=== PATIENT | male | born 1980 | race Caucasian/White ===

== ENCOUNTER 2020-09-28 14:22 | Emergency (ER) | payer OTHER, SELFPAY ==
[2020-09-28 14:40] VITALS: PULSE 119; RESP 20; TEMP 38.2; O2SAT 95; BMI 49.1
--- NOTE | 2020-09-28 15:09 | W.ED.EXTPRO ---
HPI - Extremity Problem General: Chief complaint: Extremity Problem,Nontraumatic Stated complaint: R LEG PAIN Time Seen by Provider: 09/28/20 14:36 History of Present Illness: HPI Narrative: Patient is a 39-year-old male comes to the ED with right leg pain. Patient says approximately 2 weeks ago started developing some right leg pain and soreness from road rash on the front part of calf. Patient says he has had this before and it cellulitis. He usually gets a prescription for an antibiotic and it improves and goes away. Patient says he had a few leftover antibiotics that he has been taking for couple days now and says that it has improved his right leg but he is out of antibiotics. Associated symptoms: Deny chest pain, fever(s) or rash Review of Systems Const: Denies: fever(s), chills or fatigue Eyes: Denies: change in vision or eye discomfort ENMT: Denies: throat pain, odynophagia, nasal discharge or nasal congestion Card: Denies: chest pain, palpitations, edema, swelling of feet/ankles, dyspnea on exertion or orthopnea Resp: Denies: dyspnea, productive cough or non-productive cough GI: Denies: abdominal pain, nausea, vomiting, diarrhea, constipation or hematochezia : Denies: flank pain, difficulty urinating, dysuria or hematuria Musc: Denies: neck pain, back pain or extremity swelling Skin/Breast: Reports: new lesions (On anterior aspect of right lower leg?tenderness erythema and warmth.); Denies: rash Neuro: Denies: headache(s), numbness in extremities or weakness in extremities Physical Exam Const: COMMON NORMALS: no acute distress, patient oriented x3 and alert GENERAL APPEARANCE: cooperative and comfortable NUTRITIONAL APPEARANCE: obese HENMT: COMMON NORMALS: normocephalic HEAD & SCALP: normocephalic MOUTH: Normal oral and palatal mucosa present THROAT: posterior oropharynx normal and uvula midline Neck/C-Spine: COMMON NORMALS: supple GENERAL: Yes normal visual inspection Resp: COMMON NORMALS: normal respiratory effort, No retractions, No use of accessory muscles and clear to auscultation bilaterally AUSCULTATION: clear to auscultation bilaterally Cardio: COMMON NORMALS: regular rate, regular rhythm, S1 normal heart sound present, S2 normal heart sound present, No gallops present (Cardio), No clicks present (Cardio), No murmurs present (Cardio) and Peripheral pulses 2+ throughout RATE: regular rate RHYTHM: regular rhythm HEART SOUNDS: S1 normal heart sound present and S2 normal heart sound present PERIPHERAL PULSES: Peripheral pulses 2+ throughout GI: COMMON NORMALS: Normal to inspection, nondistended, normoactive bowel sounds present, Soft to palpation, non-tender and no masses PALPATION: Yes Soft to palpation : COMMON NORMALS: Yes no CVA tenderness BLADDER/KIDNEY EXAM: Yes no CVA tenderness Back/Pelvis: COMMON NORMALS: no CVA tenderness Extremity: NARRATIVE EXTREMITY EXAM: Anterior aspect of right lower leg has tenderness, erythema and warmth. Findings suggestive of cellulitis. GENERAL: Yes normal exam except as noted Neuro: COMMON NORMALS: patient oriented x3 and moves all extremities SENSORIUM/ORIENTATION: Yes alert Skin: NARRATIVE SKIN EXAM: Anterior aspect of right lower leg has tenderness, erythema and warmth. Findings suggestive of cellulitis. GENERAL SKIN EXAM: dry skin Course Vital Signs: Vital signs: Vital Signs Temperature 100.7 F H 09/28/20 14:40 Pulse Rate 119 H 09/28/20 14:40 Respiratory Rate 20 H 09/28/20 14:40 Pulse Oximetry 95 09/28/20 14:40 MDM - Extremity (Nontraumatic) MDM Narrative: Medical decision making narrative: Patient is a 39-year-old male comes to the ED with pain to right lower leg. Patient's anterior aspect of right lower leg had tenderness erythema and warmth. Findings suggestive of cellulitis. Patient was given a dose of IM Rocephin here in the ED. He was discharged home with a prescription for Bactrim. I placed order with case management for patient to be referred to a PCP. Return to ED precautions given. I told patient that case management will be contacting them in the next couple days set up appointment with PCP. Take [id number] Tylenol or ibuprofen for pain or fevers. Patient understood agree with plan. Discharge Plan Discharge Patient Disposition: Home Clinical Impression: Cellulitis Qualifiers: Site of cellulitis: extremity Site of cellulitis of extremity: lower extremity Laterality: right Qualified Code(s): L03.115 - Cellulitis of right lower limb Condition: Stable Prescriptions: New Bactrim DS 800-160 mg tablet 1 tab PO BID 10 Days Qty: 20 RF: 0 Discharge Orders: Discharge ED (Routine); Ordered 09/28/20 Ordered By: Suresh Hylton Discharge Diet: Regular Discharge Activity: Limit activity as instructed Patient Instructions: Cellulitis (ED) Activity Restrictions/Additional Instructions: Follow-up with medical provider as directed. Case management will contact you next several days set up an appointment with a PCP. Take medications as prescribed. Return to the ER or your medical provider if condition worsens. Please read and understand discharge instructions. If any questions, please ask. Stand Alone Forms: Work/School Release Coding Level of Care Code ED [employer] for [employer] Fwd Exam Comprehensive
[2020-09-28] MEDS: cefTRIAXone 1,000 MG in lidocaine 1% 2.1 ML 1 MG IM (15:29)
--- NOTE | 2020-10-01 11:00 | DCPLANNER ---
escrow manager had message to speak with patient about getting a primary care physician. escrow manager called phone number [phone], unable to speak with patient at this time, a voicemail was left for patient to return caseworker intake phone call.
== END 2020-09-28 15:32 | disposition home or self-care (01) ==
LOC: ER 15:27
PROVIDERS: Emergency Provider Physician Assistant
DX: L03.115 Cellulitis of right lower limb (principal)
CPT/HCPCS: 96372; 99283; J0696

== ENCOUNTER 2023-02-14 09:33 | Outpatient (CLI) | payer BC, MEDICAID, SELFPAY ==
[2023-02-17 12:50] LABS: Quantiferon Mitogen 9.96 IU/mL; Quantiferon Nil 0.07 IU/mL; Quantiferon Plus TB2 <0.00 IU/mL; Quantiferon TB Gold NEGATIVE (NEGATIVE)
== END 2023-02-14 09:34 | disposition home or self-care (01) ==
LOC: LAB 09:44
PROVIDERS: PCP Family Medicine; Visit Provider Family Medicine
DX: Z11.1 Encounter for screening for respiratory tuberculosis (principal)
CPT/HCPCS: 36415; 86480

== ENCOUNTER 2023-03-08 07:39 | Day surgery (SDC) | payer BC, MEDICAID, SELFPAY ==
[2023-03-07 13:07] VITALS: BMI 51.0
[2023-03-08] VITALS (11 sets, daily range): BP systolic 146–163; BP diastolic 82–101; PULSE 56–66; RESP 16–18; TEMP 36.1–36.8; O2SAT 92–100
--- NOTE | 2023-03-08 08:04 | W.PM.OPSUD ---
Surgery/Procedure H&P Update DATE OF PROCEDURE: March 08, 2023 DATE H&P PERFORMED: 02/21/23 H&P UPDATE INFORMATION: I have reviewed H&P completed within last 30 days, I have examined patient prior to procedure and No changes to prior documentation PLANNED PROCEDURE: Operation Date: 03/08/23 09:05 Proposed Procedures p 84291 lap umbilical hernia repair with mesh K42.9(Not Applicable) - Stanley Mcmillan, DO
--- NOTE | 2023-03-08 08:35 | ANES.PREANE2 ---
Pre-Anesthetic Assessment Height/Weight: Height 1.7 m Weight 147.871 kg Temp Pulse Resp BP Pulse Ox O2 Del Method 97.4 F L 60 16 148/101 97 Room Air 03/08/23 08:05 03/08/23 08:05 03/08/23 08:05 03/08/23 08:05 03/08/23 08:05 03/08/23 08:17 Operation Date: 03/08/23 09:05 Proposed Procedures p 42909 lap umbilical hernia repair with mesh K42.9(Not Applicable) - Stanley Mcmillan DO Familial anesthetic complications: none Was Beta Gabriela taken within 24 hours: N/A Was Clonidine taken within 24 hours: N/A Last intake: Intake Last Liquid Date 03/07/23 Last Liquid Time 23:05 Last Solid Date 03/07/23 Last Solid Time 22:00 Social No alcohol and No tobacco Exam alert, oriented x 3, clear to auscultation bilaterally and regular rate & rhythm Airway Submandibular: within normal limits Cervical ROM: within normal limits Mallampati: Class II Comments: Comments: Missing some Pulmonary ?RACHEL, undiagnosed--snores CV/HEM Hypertension Metabolic Morbid Obesity Anesthetic Plan ASA status: 3 Anesthesia: General Medications/Allergies Home Medications Medication Instructions Recorded Confirmed Last Taken Type escitalopram oxalate 10 mg tablet 10 mg PO DAILY 03/07/23 03/08/23 03/07/23 History hydrochlorothiazide 25 mg tablet 25 mg PO DAILY 03/07/23 03/07/23 03/08/23 History hydroxyzine HCl 25 mg tablet 25 mg PO Q6H PRN Anxiety 03/07/23 03/08/23 03/06/23 History rizatriptan 10 mg tablet (Maxalt) 10 mg PO PRN PRN Migraine Headache 03/07/23 03/08/23 12/27/22 History Allergies Allergy/AdvReac Type Severity Reaction Status Date / Time Iodinated Contrast Media Allergy ALGY-Anaphy Verified 03/07/23 12:53 laxis iodine Allergy ALGY-Anaphy Verified 03/07/23 12:53 laxis Penicillins Allergy ALGY-Anaphy Verified 03/07/23 12:53 laxis pseudoephedrine Allergy ADR-Migrain Verified 03/07/23 12:53 [From Sudafed] e shellfish derived Allergy ALGY-Anaphy Verified 03/07/23 12:53 laxis rasberries Allergy Unknown Unknown Uncoded 03/07/23 12:53 [facility] Anesthesia Surgical History (Updated 02/21/23 @ 14:51 by Stanley Mcmillan DO) History of tonsillectomy and adenoidectomy Family History Unknown Cancer Diabetes Social History Smoking and tobacco status: never smoked Alcohol intake: never Data Anesthesia Cardiac Studies: No Data to Display
[2023-03-08] MEDS: sodium chloride 0.9% 1,000 ML 30 ML IV (08:54)
[2023-03-08] MEDS: vancomycin 1,500 MG/300 ML PIGGYBACK 200 MG IV (09:07)
[2023-03-08 09:26] LABS: Anion Gap 11.5 (5-19); Blood Urea Nitrogen 17 mg/dL (6-20); Calcium 8.8 mg/dL (8.5-10.5); Carbon Dioxide 28 mmol/L (22-29); Chloride 103 mmol/L (98-107); Creatinine Clr Calc Pharmacy 149.4325; Glomerular Filtration Rate 92.5 mL/min (90-130); Glucose 104 mg/dL (65-115); Osmolality Calculated 290 mOsm/kg (285-295); Potassium 3.5 mmol/L (3.5-5.1); Sodium 139 mmol/L (136-145)
[2023-03-08] MEDS: lidocaine-epi 2% 20 mL INJ INJECTION (10:09)
--- NOTE | 2023-03-08 10:32 | PM.OP ---
Operative Report Date of procedure: March 08, 2023 Pre-op diagnosis: Umbilical hernia Post-op diagnosis: same Procedure done: Laparoscopic repair of umbilical hernia with mesh Implants: 11 cm round Ventralight mesh Specimens removed/disposition: Hernia sac Surgeon: Stanley Mcmillan DO Anesthesia: General Estimated blood loss (mL): 5 Complications: None apparent Brief History: This is a very pleasant 42-year-old gentleman who presented to my office with an umbilical hernia. Laparoscopic repair with mesh was indicated. The risk and benefits were explained and documented. Procedure: Patient was wheeled into the operative room and placed on the OR table in a supine position. Abdomen was inspected prepped and draped in usual sterile fashion. Time-out was performed and all present were in agreement. A 15 blade scalp was used to make a 5 millimeter incision left upper quadrant. A Veress needle was placed into the incision and intra-abdominal insufflation was brought to 15 millimeters of mercury. A 12 millimeter trocar was placed into the left lower quadrant. An umbilical hernia was identified and contained significant amounts of omentum. This was reduced manually. Hernia defect measured approximately 2 cm in diameter. The energy device was then used to cut out the hernia sac. An 11 cm ventralight mesh was placed into the abdomen and brought up through the umbilicus using an the Tyree-Liz. The mesh was tacked in place in a double crown fashion. The skeleton of the mesh was removed via the left lower quadrant. The hernia sac was then removed from the abdomen via the left lower quadrant. The left lower quadrant port site was closed with an 0 Vicryl suture in a Tyree-Liz in a [id number] fashion. Incisions were closed with 4 O Vicryl in a subcuticular interrupted fashion. Skin glue was applied. A dressing that included cotton balls and a Tegaderm was placed over the umbilicus. Patient tolerated the procedure well.
--- NOTE | 2023-03-08 11:42 | SUR.PHASEII ---
ABDOMENAL INCISIONS CLEAN AND DRY AND INTACT.
[2023-03-08] MEDS: HYDROcodone-acetaminophen 10-325 mg Tablet 1 TAB PO (12:22)
--- NOTE | 2023-03-08 13:32 | ANE.PACU2 ---
Inpatient post-anesthesia follow up: Airway intact: Yes Vital signs: Temperature 98.2 F Pulse Rate 57 Respiratory Rate 16 Blood Pressure 159/82 Pulse Oximetry 93 Oxygen Delivery Me thod Room Air Oxygen Flow Rate 6 Fraction of Inspir ed Oxygen Hydration adequate: Yes Nausea and vomiting: No Pain level: 3 Mental status: Baseline
== END 2023-03-08 12:50 | disposition home or self-care (01) ==
PROVIDERS: Anesthesiology; PCP Family Medicine; Visit Provider Surgery
PROC: 0WQF4ZZ Repair Abdominal Wall, Percutaneous Endoscopic Approach (ICD-10-PCS; CPT 49591; principal; 2023-03-08 08:55)
DX: K42.9 Umbilical hernia without obstruction or gangrene (principal); I10 Essential (primary) hypertension; E66.01 Morbid (severe) obesity due to excess calories; Z68.43 Body mass index [BMI] 50.0-59.9, adult
CPT/HCPCS: 49591; 36415; 80048; 88302; C1781; J1100; J2405; J2704; J3010; J3370; J3490; J7030

== ENCOUNTER 2024-05-19 13:48 | Outpatient (CLI) | payer BC, MEDICAID, SELFPAY ==
--- NOTE | 2024-05-19 13:53 | MR_ITS ---
WS: [id number] MRI HEAD WITH CONTRAST WITH ATTENTION TO THE PITUITARY TECHNIQUE: Sagittal T1, T2 axial, T2 axial FLAIR, axial susceptibility weighted imaging, axial diffus ion weighted images, and coronal T2 images were obtained. Pre and post-T1 axial and post T1 coronal i mages. ADC and FSPGR images. Dynamic and post gadolinium pituitary imaging. CLINICAL INFORMATION: HYPERPROLACTINEMIA/ABNORMAL THYROID STIMULATING HORMONE COMPARISON: None. FINDINGS: Normal optic chiasm and pituitary infundibulum. No evidence of microadenoma. Normal homogeneous pitui tary enhancement. No evidence of intrasellar or suprasellar mass. No evidence of restricted diffusion to suggest acute ischemia. No suspicious intracranial signal abno rmalities. Normal tavares-white differentiation. Normal posterior fossa. Normal vascular flow voids at t he skull base. No extra-axial fluid collections. Mild mucosal thickening LEFT maxillary sinus. Mild m ucosal thickening LEFT mastoid tip. No hemosiderin on the susceptibly weighted images. MR/MR pituitary wo/w con* [id number] IMPRESSION: 1. No evidence of intrasellar or suprasellar mass. No evidence of microadenoma . Normal homogeneous pituitary enhancement. 2. Normal optic chiasm and pituitary infundibulum. 3. No suspicious intracranial signal normalities. 4. No hemosiderin on the susceptibly weighted images. 5. Mild mucosal thickening LEFT maxillary sinus.
[2024-05-19] MEDS: gadobenate dimeglumine 20 mL vial 19 ML IV (15:17)
== END 2024-05-19 13:49 | disposition home or self-care (01) ==
LOC: RAD 13:49
PROVIDERS: PCP Family Medicine; Visit Provider Family Medicine
DX: E22.1 Hyperprolactinemia (principal); E29.1 Testicular hypofunction; R94.6 Abnormal results of thyroid function studies
CPT/HCPCS: 70553

== ENCOUNTER 2024-08-06 20:00 | Outpatient (CLI) | payer BC, MEDICAID, SELFPAY | END 2024-08-06 20:01 | disposition home or self-care (01) | LOC: SLEEP 23:38 | PROVIDERS: PCP Family Medicine; Visit Provider Family Medicine | DX: G47.33 Obstructive sleep apnea (adult) (pediatric) (principal) | CPT/HCPCS: 95810 ==

== ENCOUNTER 2025-01-16 12:06 | Outpatient (CLI) | payer BC, SELFPAY ==
[2025-01-16 13:35] LABS: Hematocrit 36.6 % (37-53); Hemoglobin 12.30 g/dL (11.27-16.99); Mean Corpuscular HGB Conc 33.6 g/dL (30-55); Mean Corpuscular Hemoglobin 29.8 pg (27-33); Mean Corpuscular Volume 88.6 fl (82-101); Nucleated Red Blood Cells % 0 %; Platelet Count 309 10^3/cmm (157-399); Red Blood Count 4.13 10^6/uL (3.85-5.65); White Blood Count 8.17 10^3/uL (3.29-11.43)
[2025-01-16 13:50] LABS: Estmated Average Glucose 117; Hemoglobin A1C 5.7 % (4.0-6.0)
[2025-01-16 14:13] LABS: Alanine Aminotransferase 16 U/L (0-41); Albumin Level 3.6 g/dL (3.5-5.2); Alkaline Phosphatase 116 U/L (40-130); Anion Gap 10.9 (5-19); Aspartate Amino Transferase 16 U/L (0-40); Blood Urea Nitrogen 16 mg/dL (6-20); Calcium 8.4 mg/dL (8.5-10.5); Carbon Dioxide 26 mmol/L (22-29); Chloride 104 mmol/L (98-107); Cholesterol 190 mg/dL (0-200); Globulin 3.3 g/dL (1.3-4.6); Glucose 90 mg/dL (65-115); HDL Cholesterol 27 mg/dL (60-100); Osmolality Calculated 285 mOsm/kg (285-295); Potassium 3.9 mmol/L (3.5-5.1); Sodium 137 mmol/L (136-145); Thyroid Stimulating Hormone 4.12 uIU/mL (0.27-4.20); Total Protein 6.9 g/dL (6.6-8.7); Triglycerides 113 mg/dL (0-150)
== END 2025-01-16 12:07 | disposition home or self-care (01) ==
LOC: LAB 12:09
PROVIDERS: Psychiatry & Neurology Psychiatry; PCP Family Medicine; Visit Provider Internal Medicine
DX: F33.2 Major depressive disorder, recurrent severe without psychotic features (principal); F63.81 Intermittent explosive disorder; R79.89 Other specified abnormal findings of blood chemistry; F41.1 Generalized anxiety disorder; F43.12 Post-traumatic stress disorder, chronic; Z79.899 Other long term (current) drug therapy
CPT/HCPCS: 80053; 80061; 83036; 84443; 85025

== ENCOUNTER 2025-01-20 11:10 | Outpatient (CLI) | payer BC, MEDICAID, SELFPAY ==
[2025-01-20 12:52] LABS: Hematocrit 38.0 % (37-53); Hemoglobin 13.10 g/dL (11.27-16.99); Mean Corpuscular HGB Conc 34.5 g/dL (30-55); Mean Corpuscular Hemoglobin 30.5 pg (27-33); Mean Corpuscular Volume 88.6 fl (82-101); Nucleated Red Blood Cells % 0 %; Platelet Count 294 10^3/cmm (157-399); Red Blood Count 4.29 10^6/uL (3.85-5.65); White Blood Count 8.50 10^3/uL (3.29-11.43)
[2025-01-20 13:18] LABS: Alanine Aminotransferase 14 U/L (0-41); Albumin Level 3.5 g/dL (3.5-5.2); Alkaline Phosphatase 116 U/L (40-130); Anion Gap 12.9 (5-19); Aspartate Amino Transferase 16 U/L (0-40); Blood Urea Nitrogen 16 mg/dL (6-20); Calcium 8.4 mg/dL (8.5-10.5); Carbon Dioxide 23 mmol/L (22-29); Chloride 107 mmol/L (98-107); Cholesterol 190 mg/dL (0-200); Globulin 3.7 g/dL (1.3-4.6); Glucose 93 mg/dL (65-115); HDL Cholesterol 27 mg/dL (60-100); Osmolality Calculated 289 mOsm/kg (285-295); Potassium 3.9 mmol/L (3.5-5.1); Sodium 139 mmol/L (136-145); Total Protein 7.2 g/dL (6.6-8.7); Triglycerides 120 mg/dL (0-150)
== END 2025-01-20 11:11 | disposition home or self-care (01) ==
PROVIDERS: PCP Family Medicine; Visit Provider Internal Medicine
DX: E11.9 Type 2 diabetes mellitus without complications (principal); R79.89 Other specified abnormal findings of blood chemistry
CPT/HCPCS: 36415; 80053; 80061; 84403; 85025

== ENCOUNTER → 2025-01-21 10:28 | Outpatient (BNVA) | payer BC, MEDICAID, SELFPAY | PROVIDERS: PCP Family Medicine; Visit Provider Internal Medicine | DX: Z79.899 Other long term (current) drug therapy (principal); R79.89 Other specified abnormal findings of blood chemistry; R63.5 Abnormal weight gain | CPT/HCPCS: 36415; 83001; 83002; 84146; 84153; 84270; 84402; 84403 ==